=== PATIENT | female | born 1975 | race Caucasian/White ===

== ENCOUNTER → 2018-07-16 12:20 | Outpatient (CLI) | payer OTHER, SELFPAY ==
--- NOTE | 2018-07-16 12:24 | NM_ITS ---
History and Indications: Hypertension, coronary artery disease, bypass surgery, tobacco use, family history, chest pain, shortness of breath abnormal EKG, syncope and fatigue Procedure: Patient received a 0.4 mg of intravenous Lexiscan, resting heart rate was 96 bpm resting blood pressure 145/97, with Lexiscan maximum heart rate achieved was 105 bpm which is less than 85% of the maximum predicted heart rate and a blood pressure was 151/91. With Lexiscan patient complained of shortness of breath. Electrocardiogram: Resting electrocardiogram showed the ectopic atrial rhythm , nonspecific ST-T changes, with Lexiscan there is less than 1.[address] segment depression noted from the baseline EKG. Patient transiently converted sinus rhythm during this study. At that of the test patient has a ectopic atrial rythm. Cardiac stress and resting SPECT images: Cardiac stress and rest SPECT images were obtained using technetium 99 Myoview 30.6 mCi at stress and 10.0 mCi at rest. Gated SPECT further analysis of segmental wall motion and calculation of the ejection fraction also done. Cardiac stress and rest images show uniform myocardial activity without any segmental perfusion abnormality, computer derived ejection fraction is 61% with no obvious regional wall motion abnormality, right ventricle is normal size and contractility. Conclusion: 1. The EKG portion of the Lexiscan Myoview is nondiagnostic, patient has ectopic atrial rhythm baseline. 2. No obvious scintigraphic evidence of reversible ischemia seen, computer derived ejection fraction is 61% with no regional wall motion abnormality, right ventricle is normal size and contractility.
--- NOTE | 2018-07-16 12:56 | HMH.ITSHM ---
GABAPENTIN METOPROLOL CATAPRES MAXZIDE IBUPROFEN TRAMADOL
== END ==
PROVIDERS: Family Provider Internal Medicine Adolescent Medicine; PCP Nurse Practitioner Family; Visit Provider Internal Medicine
DX: R07.9 Chest pain, unspecified (principal); R06.02 Shortness of breath; I10 Essential (primary) hypertension
CPT/HCPCS: 78452; 93017; A9502; J2785

== ENCOUNTER → 2018-07-19 08:01 | Outpatient (CLI) | payer OTHER, SELFPAY ==
--- NOTE | 2018-07-19 08:02 | AS_ITS ---
Renal Arterial Duplex IMPRESSIONS 1. Elevated bilateral renal artery velocities suggesting renal artery stenosis. Consider CTA for confirmation 2. Bilateral kidney size, on the upper limits of normal. Complete renal arterial duplex. Duplex scan and Doppler flow study including spectral analysis, color and spears scale imaging. Height: Height: 175.3cm. Height: 69in. Weight: Weight: 87.1kg. Weight: 191.6lb. Body mass index: BMI: 28.4kg/m^2. Body surface area: BSA: 2.08m^2. Location: Vascular laboratory. Patient status: Outpatient. Tables: Arterial flow: + +-------+--------+ Location V sys V ed + +-------+--------+ Right renal - proximal 190cm/s 62.3cm/s + +-------+--------+ Right renal - mid 211cm/s 77cm/s + +-------+--------+ Right renal - distal 136cm/s 54.3cm/s + +-------+--------+ Left renal - proximal 181cm/s 62.7cm/s + +-------+--------+ Left renal - mid 173cm/s 68.2cm/s + +-------+--------+ Left renal - distal 261cm/s 96.9cm/s + +-------+--------+ Right renal - Origin 185cm/s 71cm/s + +-------+--------+ Left renal - Origin 177cm/s 61cm/s + +-------+--------+ Aorta 112cm/s 25cm/s + +-------+--------+ Artery mapping: + +--------+-------+ Location Diameter Patency + +--------+-------+ Abdominal aorta - mid 1.6mm Patent + +--------+-------+ Renal anatomy: + +------+------+ Left Right + +------+------+ Long axis 13.2cm 13.8cm + +------+------+ Short axis 5cm 5.6cm + +------+------+ Velocity ratios: + +-----+ V sys + +-----+ Right renal/aortic 2.1 + +-----+ Left renal/aortic 2.3 + +-----+ (Report amended ) Electronically signed by: Pankaj Schulz [id number]
--- NOTE | 2018-07-19 08:02 | CA_ITS ---
PROCEDURE: 2-D M-mode and color Doppler study INDICATIONS FOR THE TEST: Chest pain+ COPD Heart Murmur+ Tobacco Smoking+ Palpitations+ Fatigue+ Syncope+ Edema+ Hypertension+Diabetes Mellitus Rheumatic Fever SOB HERNANDEZ Obesity Hyperlipidemia Family History HD+ Additional History hx of open heart to correct a PFO at age 14, colon cancer, pre-op clearance for hysterectomy PATIENT INFORMATION HEIGHT: 69 WEIGHT: 196 GENDER: Female B/P: 174/89 2-D/M-MODE INTERPRETATION: 2-D MEASUREMENTS OBSERVED VALUES IN CMS Right Ventricular Dimension (RVDd) 2.4 Interventricular Septum (Thickness)(IVsd) 1.0 Left Ventricular Internal Dimensions(LVIDd) 4.8 Left Ventricular Posterior Wall (Thickness)(LVPWd) 1.0 Aortic Root 3.1 Aortic Cusp Separation 2.4 Left Atrial Dimensions (LAD) 3.5 2D 1. Left atrium is qualitatively mildly enlarged, left ventricle is normal size, mild concentric left ventricular hypertrophy, visually estimated ejection fraction 55% with no obvious regional wall motion abnormality. 2. The right atrium and right ventricle are relatively normal size and function. 3. The intra-atrial septum is echogenic, historically patient is status post ASD repair. 4. The mitral and tricuspid valve leaflets are minimally thickened. 5. The pulmonic valve is poorly visualized. 6. No significant pericardial effusion noted. DOPPLER INTERROGATION: Doppler interrogation of the aortic, mitral and tricuspid valvular presence of mild mitral and tricuspid regurgitation, tricuspid regurgitation jet velocity is insufficient for calculation of the right ventricular systolic pressure, diastolic parameters are inconclusive, there is no flow across the intra-atrial septum. CONCLUSION: 1. Mildly enlarged left atrium, normal left ventricular size, mild concentric left ventricular hypertrophy, visually estimated ejection fraction 55% with no obvious regional wall motion abnormality, diastolic parameters are inconclusive. 2. Mild mitral and tricuspid regurgitation 3. Status post ASD repair, there is no flow across the intra-atrial septum. 4. No significant pericardial effusion noted.
== END ==
PROVIDERS: Family Provider Internal Medicine Adolescent Medicine; PCP Nurse Practitioner Family; Visit Provider Internal Medicine
DX: R07.9 Chest pain, unspecified (principal); R42 Dizziness and giddiness; F17.200 Nicotine dependence, unspecified, uncomplicated; I10 Essential (primary) hypertension; R94.31 Abnormal electrocardiogram [ECG] [EKG]; Z01.818 Encounter for other preprocedural examination
CPT/HCPCS: 93306; 93976

== ENCOUNTER → 2019-07-25 07:54 | Outpatient (CLI) | payer OTHER, SELFPAY ==
[2019-07-25 08:11] LABS: Basophils # 0.1 K/mm3 (0-0.2); Basophils % 0.8 % (0.1-2.0); Eosinophils # 0.2 K/mm3 (0.0-0.4); Eosinophils % 2.7 % (0.1-12.0); Hematocrit 44.8 % (37.0-47.0); Hemoglobin 14.8 g/dL (12.2-16.2); Lymphocytes # 2.7 K/mm3 (0.7-4.5); Lymphocytes % 30.9 % (10-50); Mean Corpuscular HGB Conc 32.9 g/dL (31.8-35.4); Mean Platelet Volume 7.1 fl (7.4-10.4); Monocytes # 0.4 K/mm3 (0.1-1.0); Monocytes % 4.8 % (1.7-9.3); Neutrophils # 5.3 K/mm3 (1.8-7.8); Neutrophils % 60.9 % (37.0-80.0); Platelet Count 271 K/mm3 (142-424); Red Blood Count 5.09 M/mm3 (4.20-5.40); Red Cell Distribution Width 13.9 % (11.5-17.5); White Blood Count 8.7 K/mm3 (4.8-10.8)
[2019-07-25 10:02] LABS: Alanine Aminotransferase 27 U/L (12-78); Albumin Level 3.5 gm/dL (3.4-5.0); Alkaline Phosphatase 64 U/L (46-116); Anion Gap 15.2 mEq/L (5-15); Aspartate Amino Transferase 15 U/L (15-37); Bilirubin,Direct 0.1 mg/dL (0.0-0.2); Bilirubin,Indirect 0.3 mg/dL (0.0-0.9); Bilirubin,Total 0.4 mg/dL (0.2-1.0); Blood Urea Nitrogen 14 mg/dL (7-18); Calcium 10.6 mg/dL (8.5-10.1); Carbon Dioxide 25 mmol/L (21.0-32.0); Chloride 102 mmol/L (98-107); Chol/HDL Ratio 4.6 (1-3.5); Cholesterol 206 mg/dL (140-200); Creatinine,Serum 0.79 mg/dL (0.55-1.02); Estimated Glomerular Filt Rate 80 ml/min (>60); Free T4 (Free Thyroxine) 1.02 ng/dl (0.76-1.46); GFR (African American) 97 ML/MIN (>60); Glucose 91 mg/dL (74-106); HDL Cholesterol 45 mg/dL (29-89); LDL Cholesterol 109 mg/dL (0-130); Potassium 4.2 mmoL/L (3.5-5.1); Sodium 138 mmol/L (136-145); Thyroid Stimulating Hormone 0.72 uIU/ml (0.358-3.740); Total Protein,Serum 7.7 gm/dL (6.4-8.2); Triglycerides 261 mg/dL (30-200); VLDL Cholesterol 52 mg/dL (0-40)
== END ==
PROVIDERS: Visit Provider Urology
DX: R00.2 Palpitations (principal); R06.09 Other forms of dyspnea; R07.9 Chest pain, unspecified; R94.31 Abnormal electrocardiogram [ECG] [EKG]; I10 Essential (primary) hypertension; R53.83 Other fatigue; R60.0 Localized edema; Z85.038 Personal history of other malignant neoplasm of large intestine; Z87.74 Personal history of (corrected) congenital malformations of heart and circulatory system
CPT/HCPCS: 36415; 80048; 80061; 80076; 84439; 84443; 85025

== ENCOUNTER → 2019-08-02 09:02 | Outpatient (CLI) | payer OTHER, SELFPAY ==
--- NOTE | 2019-08-02 09:03 | CA_ITS ---
APPROVED REPORT EXAM: Comprehensive 2D, Doppler, and color-flow Echocardiogram Director Game: Piedad Myers RDCS Ht: 5 ft 9 in Wt: 192lbs BSA: 2.03 BP: 165/98 mmHg Indications: CP SMOKER PALPS HTN HERNANDEZ 2D Dimensions LVOT 1.80 cm (M/F) 1.5-2.5 M-Mode Dimensions RVDd 2.20 cm (0.9-2.6) LA Diam 3.00 cm (1.9-4.0) LVDd 5.30 cm (3.5-5.7) Ao Diam 3.70 cm (2.0-3.7) LVDs 3.40 cm (3.5-5.7) AV Cusp 2.00 cm (1.5-2.6) IVSd 1.20 cm (0.6-1.1) PWd 1.20 cm (0.6-1.1) EF (Teich) 64.90% FS 35.80% EDV (Teich) 135.00 mL ESV (Teich) 47.40 mL LV Diastology E/A Ratio 0.9 MED E' 8.19 (< 7 cm/sec) E'/MED E' Ratio 7.70 (>14) LAT E' 10.00 (<10 cm/sec) E/LAT E' Ratio 6.30 (>14) Mitral Valve MV E Max Harvey. 62.70 (40-130 cm/s) MV A Velocity 70.10 (40-130 cm/s) E/A Ratio 0.90 Left Ventricle Left atrium is mildly enlarged, left ventricle is normal size, mild concentric left ventricular hypertrophy, visually estimated ejection fraction 55% with no regional wall motion abnormality, diastolic parameters are within normal range. Right Ventricle Right atrium and right ventricular normal size and contractility. Aortic Valve Aortic valve is minimally thickened and fibrosed. There is no aortic stenosis aortic insufficiency. Mitral Valve Mitral valve is grossly normal, there is mild mitral regurgitation. Tricuspid Valve Tricuspid valve is grossly normal, there is mild tricuspid regurgitation. Pulmonic Valve Pulmonic valve is poorly visualized. Great Vessels Aortic root is normal size. Pericardium No significant pericardial effusion noted. Conclusion 1. Mildly in the left atrium, normal left ventricular size, mild concentric left ventricular hypertrophy, visually estimated ejection fraction of 55% with no regional wall motion abnormality. Diastolic parameters are within normal range. 2. Mild mitral and tricuspid regurgitation 3. No significant pericardial effusion noted. Electronically signed by : Rafael Thakur, 08/04/2019 08:00:55
--- NOTE | 2019-08-02 09:03 | CA_ITS ---
APPROVED REPORT Exam: Exercise Treadmill Technologist: Fox Matthews, Ht: 5 ft 9 in Wt: 194 lbs BSA: 2.04 m2 HR: 78 bpm BP: 150/90 mmHg Rhythm: SINUS RHYTHM Medical History Medical History: CHEST PAIN HTN Medications: Gabapentin,,,,, Blood pressure,,,,, HORMONE,,,,, Allergies: PCN Cardiac Risk Factors: HTN, Hyperlipidemia Stress Test Details Test: Manual Treadmill HR Resting HR: 78 bpm Max Heart Rate (APMHR): 178 bpm Max HR Achieved: 137 bpm Target HR (85% APMHR): 151 bpm % of APMHR: 76 Recovery HR: 133 bpm BP Resting BP: 150/90 mmHg Max BP: 178/90 mmHg Recovery BP: 172.0/98.0 mmHg ECG Resting ECG: SINUS RHYTHM Clinical Exercise duration: 07:10 min Highest Stage Achieved: Exercise capacity: 8.8 METs Stress ECG Conclusion JIMMY PROTOCOL COMPLETED. EXERCISED 07:10 MINUTES. METS = 8.8. MAX HEART RATE 137 BPM. MAX BP 178/90. STOPPED DUE TO SHORTNESS OF BREATH. MAX HEART RATE 137 BPM WHICH IS 77% OF PM FOR AGE. KILO BP 178/90. METS = 8.8. TEST STOPPED DUE TO SHORTNESS OF BREATH. NO CHEST PAIN. + SHORTNESS OF BREATH AT PEAK EXERCISE. RESOLVING IN RECOVERY, NO ECTOPY. LESS THAN 1.5MM ST DEPRESSION. AVERAGE EXERICES CAPACITY. HYPERTENSIVE RESPONSE. NO ECTOPY. LESS THAN 1.5MM ST DPRESSION AT MAX HEART RATE OF 137 BPM AT 77%. Nondiagnostic treadmill stress test as patient did not achieve the target heart rate Test Summary REST . . . . . . . Standing REST . . . . . . . Sitting REST 04:50 0.0 0.0 78 . 150/ 90 . . Stage 1 01:00 10.0 1.7 92 . . . . Stage 1 02:00 10.0 1.7 99 . . . . Stage 1 03:00 10.0 1.7 107 . . . . Stage 2 01:00 12.0 2.5 114 . 162/100 . . Stage 2 02:00 12.0 2.5 120 . 162/100 . . Stage 2 03:00 12.0 2.5 126 . 162/100 . . Stage 3 . . . . . . . Stage held Stage 3 . . . . . . . Stage resumed Stage 3 . . . . . . . Protocol changed to Manual Treadmill Stage 3 01:00 15.5 2.9 136 . . . . Stage 3 01:10 15.5 2.9 137 . . . Stop exercise at 07:10 RECOVERY 01:00 0.0 0.0 121 . . . . RECOVERY 02:00 0.0 0.0 105 . . . . RECOVERY 03:00 0.0 0.0 103 . 172/ 98 . . RECOVERY 04:00 0.0 0.0 99 . 178/ 90 . . RECOVERY 04:08 0.0 0.0 98 . 178/ 90 . . Electronically signed by : Rafael Thakur, 08/02/2019 13:56:21
== END ==
PROVIDERS: PCP Nurse Practitioner Family; Visit Provider Urology
DX: R07.9 Chest pain, unspecified (principal); R00.2 Palpitations; R94.31 Abnormal electrocardiogram [ECG] [EKG]; R06.09 Other forms of dyspnea; I10 Essential (primary) hypertension; R53.83 Other fatigue; R60.0 Localized edema; Z85.038 Personal history of other malignant neoplasm of large intestine; Z87.74 Personal history of (corrected) congenital malformations of heart and circulatory system
CPT/HCPCS: 93017; 93306

== ENCOUNTER → 2019-09-05 10:22 | Outpatient (CLI) | payer OTHER, SELFPAY ==
--- NOTE | 2019-09-05 10:44 | XR_ITS ---
PROCEDURE: XR CERVICAL SPINE 3V CLINICAL INDICATION: CERVICAlGIA COMPARISON: No exams were available for comparison FINDINGS: Normal alignment. No fracture or dislocation. Mild degenerative disc disease C5-C6. C7 is not well delineated. There is a faint outline of C7 which is normal and alignment. IMPRESSION: Mild degenerative disc disease C5-C6 Dictated by: Pankaj Schulz MD 09/05/2019 11:09 Electronically signed by Pankaj Schulz MD in [place] 09/05/2019 11:09
== END ==
PROVIDERS: PCP Nurse Practitioner Family; Visit Provider Nurse Practitioner
DX: M54.2 Cervicalgia (principal)
CPT/HCPCS: 72040

== ENCOUNTER → 2021-03-22 09:56 | Outpatient (CLI) | payer OTHER, SELFPAY ==
--- NOTE | 2021-03-22 10:02 | CA_ITS ---
APPROVED REPORT EXAM: Comprehensive 2D, Doppler, and color-flow Echocardiogram Windshield Installer: MANJU Duncan, RVS Ht: 5 ft 9 in Wt: 212lbs BSA: 2.12 BP: 134/78 mmHg Indications: congenital hx-ASD with closure age 14, SOA, exsmoker 2D Dimensions Left Atrium 4.10 cm LA Volume 77.50 mL LVOT 1.90 cm (M/F) 1.5-2.5 LA Volume Index 36.60 mL/m2 (M/F) 16-34 M-Mode Dimensions RVDd 3.40 cm (0.9-2.6) LA Diam 3.96 cm (1.9-4.0) LVDd 4.69 cm (3.5-5.7) Ao Diam 3.03 cm (2.0-3.7) LVDs 3.03 cm (3.5-5.7) IVSd 0.89 cm (0.6-1.1) PWd 0.86 cm (0.6-1.1) EF (Teich) 65.80% EPSs 0.32 cm FS 36.20% EDV (Teich) 104.90 mL TAPSE 1.45 (<1.7) ESV (Teich) 35.90 mL LV Diastology E Decel Time 263.00 (160-240 msec) E/A Ratio 2.69 MED E' 8.80 (< 7 cm/sec) MED A' 7.40 cm/s E'/MED E' Ratio 12.11 (>14) LAT E' 9.40 (<10 cm/sec) LAT A' 7.20 cm/s E/LAT E' Ratio 11.34 (>14) Aortic Valve LVOT Max 123.00 (70-110 cm/s) LVOT VTI 25.81 cm AoV Peak Harvey. 137.00 (50-130 cm/s) AO Peak GR. 7.50 mmHg AO Mean GR. 4.10 (<5 mmHg) AO VTI 29.96 (18-25 cm) LYNSEY (VTI) 2.44 (2.5-4.5 cm2) Mitral Valve MV A Velocity 40.00 (40-130 cm/s) E/A Ratio 2.69 MV Decel. Time 263.00 (160-240 ms) Pulmonary Valve PV Peak Velocity 62.00 (50-150 cm/s) Tricuspid Valve TR P. Velocity 250.00 cm/s RAP Estimate 10.00 mmHg RVSP 34.90 mmHg Left Ventricle Left atrium normal size, left ventricle is normal size, there is no concentric left ventricular hypertrophy, visually estimated ejection fraction 55% with no regional wall motion abnormality, diastolic parameters are inconclusive. Right Ventricle Right atrium and right ventricle are normal size and contractility. Atria Intra-atrial septum is intact, there is no flow across the atrial septum. Mitral Valve Mitral valve grossly normal, there is trace mitral regurgitation. Tricuspid Valve Tricuspid grossly normal, there is trace tricuspid regurgitation, tricuspid regurgitation jet velocity is inadequate for calculation of the right ventricular systolic pressure. Pulmonic Valve Pulmonic valve is poorly visualized. Great Vessels Aortic root is normal size. Pericardium No significant pericardial effusion noted. Conclusion 1. Normal left ventricular size, preserved left ventricular systolic function, visually estimated ejection fraction 55% with no regional wall motion abnormality, diastolic parameters are inconclusive. 2. Intra-atrial septum is intact, there is no flow across the interatrial septum. 3. Trace mitral and tricuspid regurgitation. 4. No significant pericardial effusion noted. Electronically signed by : Rafael Thakur, 03/22/2021 13:41:44
== END ==
PROVIDERS: PCP Nurse Practitioner; Visit Provider Nurse Practitioner Family
DX: R07.9 Chest pain, unspecified (principal); R94.31 Abnormal electrocardiogram [ECG] [EKG]; I10 Essential (primary) hypertension; E78.5 Hyperlipidemia, unspecified
CPT/HCPCS: 93306

== ENCOUNTER → 2021-06-29 14:17 | Outpatient (CLI) | payer OTHER, SELFPAY ==
--- NOTE | 2021-06-29 14:22 | XR_ITS ---
PROCEDURE: XR CHEST 2V CLINICAL HISTORY: SOB Shortness of breath and cough COMPARISON: CR XR CHEST 2V from 07/31/2019 FINDINGS: Prior median sternotomy. The heart size is normal. The lungs are clear without infiltrates, suspicious nodules, or pleural effusions. No acute bony abnormalities. IMPRESSION: No acute findings. Dictated by: Pankaj Schulz MD 06/29/2021 15:15 Pankaj Schulz MD in [place] 06/29/2021 15:15
== END ==
PROVIDERS: PCP Nurse Practitioner; Visit Provider Nurse Practitioner
DX: R06.02 Shortness of breath (principal)
CPT/HCPCS: 71046

== ENCOUNTER → 2021-09-02 12:19 | Outpatient (CLI) | payer OTHER, SELFPAY ==
--- NOTE | 2021-09-02 12:20 | NM_ITS ---
APPROVED REPORT Exam: Nuclear Stress Test Indication: Chest pain, SOB, HTN, High cholesterol, Tobacco use, Family history, CABG Patient Location: Outpatient Stress Tech: Ratna Arora [place] Tech:GELA Gomez RT(R)(N) Ht: 5 ft 9 in Wt: 213 lbs Bra Size: 38A HR: 82 bpm BP: 134/99 mmHg BSA: 2.12 m2 BMI: 31.4 History: Chest pain, SOB, HTN, High cholesterol, Tobacco use, Family history, CABG Procedure: Patient received a 0.4 mg of intravenous Lexiscan, resting heart rate 82 bpm, resting blood pressure 134/99 mmHg, with Lexiscan maximum heart rate achived was 110 bpm which is Less than 85 % of the maximum predicted heart rate and blood pressure was 188/123 mmHg. With Lexiscan, patient denied any complaint of chest pain. Electrocardiogram Resting electrocardiogram shows sinus rhythm, with Lexiscan there is less than 1.[address] segment depression noted from the baseline EKG. The EKG portion of the Lexiscan is nondiagnostic. Cardiac Stress and Resting SPECT Images: Cardiac Stress and Resting SPECT images were obtained using technetium 99m Myoview 31.4 mCi stress and 9.94 mCi at rest. Gated SPECT for analysis of segmental wall motion and calculation of the ejection fraction also done. Prone images were also obtained. Cardiac stress and resting SPECT images show uniform myocardial activity without segmental perfusion abnormality, computer derived ejection fraction is over 65% with no regional wall motion abnormality, right ventricle is normal size and contractility. Conclusion: 1. The EKG portion of the Lexiscan is nondiagnostic. 2. No scintigraphic evidence of reversible ischemia seen, computer derived ejection fraction is over 65% with no regional wall motion abnormality, right ventricle is normal size and contractility. 3. Normal Lexiscan Myoview study. Electronically signed by : Rafael Thakur MD 09/03/2021 11:32:06
--- NOTE | 2021-09-02 15:27 | HMH.ITSHM ---
Current Home Medications as stated by this patient Maura Woodson or contracts representative. []TRIAMTERENE IBUPROFEN GABAPENTIN FUROSEMIDE ESTRADIOL CETIRIZINE CARVEDILOL ATORVASTATIN VITAMIN C ADALIMUMAB
--- NOTE | 2021-09-02 15:50 | CA_ITS ---
APPROVED REPORT Exam: Pharmacologic Technologist: JOSEPH GALVAN, Ht: 5 ft 9 in Wt: 221 lbs BSA: 2.16 m2 HR: 83 bpm BP: 134/99 mmHg Indications: SOA Medical History Medications: Gabapentin,,,,, Atorvastatin,,,,, Coreg,,,,, Cetrizine,,,,, Ibuprofen,,,,, Vit C,,,,, Maxzide,,,,, Estradilol,,,,, HumIra,,,,, Furosemide,,,,, Stress Test Details Test: LEXISCAN HR Resting HR: 82 bpm Max Heart Rate (APMHR): 176.695292 bpm Max HR Achieved: 110 bpm Target HR (85% APMHR): 149.765914 bpm % of APMHR: 62.50 Recovery HR: 87 bpm BP Resting BP: 134/99 mmHg Max BP: 188/123 mmHg Recovery BP: 173.0/101.0 mmHg ECG Resting ECG: NSR, ST abns inferiorly and laterally Clinical Exercise duration: 04:01 min Highest Stage Achieved: Stress ECG Conclusion 1 Minute: SOA 2 Minute: SOA, lightheaded 3 Minute: SOA, lightheaded, nausea 4 Minute: SOA, lightheaded, nausea, vomiting Recovery 1 minute: Aminophylline 100mg slow IV Recovery 2 minute: sxs better Recovery 3 minute: sxs almost gone-still some nausea Recovery 9 minutes: 163/105 HR 84 Recovery 15 minutes: 178/100 HR 86 Recovery 30 minutes: 140/98 Symptoms: SOA, N/V, lightheaded, No CP. Arrhythmias/Ectopy: None. ST-T Changes: Exaggeration of baseline ST abns then after [address] segments normalized inferiorly with some mild J point elevation in lateral leads. Later in recovery the ST depression returned in both the inferior and lat. leads. Conclusion: Non-diagnostic Lexiscan stress. Myoview images reported separately. Test Summary RECOVERY 12:00 . . 89 . 163/105 . . Stage 1 01:00 . . 100 . . . . Stage 2 01:00 . . 98 . . . . Stage 3 01:00 . . 84 . . . . Stage 4 01:00 . . 87 . 188/123 . . Stage 4 01:01 . . 86 . 188/123 . Stop exercise at 04:01 RECOVERY 01:00 . . 102 . . . . RECOVERY 02:00 . . 94 . . . . RECOVERY 03:00 . . 92 . . . . RECOVERY 04:00 . . 89 . . . . RECOVERY 05:00 . . 88 . . . . RECOVERY 06:00 . . 87 . 165/102 . . RECOVERY 07:00 . . 87 . 165/102 . . RECOVERY 08:00 . . 89 . 165/102 . . RECOVERY 09:00 . . 84 . 165/102 . . RECOVERY 10:00 . . 86 . 163/105 . . RECOVERY 11:00 . . 86 . 163/105 . . RECOVERY 12:00 . . 89 . 163/105 . . RECOVERY 13:00 . . 86 . 163/105 . . RECOVERY 14:00 . . 86 . 163/105 . . RECOVERY 15:00 . . 82 . 163/105 . . RECOVERY 16:00 . . 87 . 178/100 . . RECOVERY 16:12 . . 86 . 178/100 . . Electronically signed by : Rafael Thakur MD 09/03/2021 11:28:24
== END ==
PROVIDERS: PCP Nurse Practitioner; Visit Provider Physician Assistant
DX: R07.9 Chest pain, unspecified (principal); R94.31 Abnormal electrocardiogram [ECG] [EKG]; E78.5 Hyperlipidemia, unspecified; I10 Essential (primary) hypertension
CPT/HCPCS: 78452; 93017; A9502; J2785

== ENCOUNTER → 2021-10-19 13:32 | Outpatient (CLI) | payer OTHER, SELFPAY ==
--- NOTE | 2021-10-19 13:33 | CT_ITS ---
PROCEDURE: CT CHEST WO CON CLINICAL INDICATION: dyspnea COMPARISON: No exams were available for comparison TECHNIQUE: Axial images obtained with sagittal and coronal reformats. All CT scans at the facility use one or more dose reduction, viz: automated exposure control, ma/kV adjustment per patient size (including targeted exams where dose is matched to indication, i.e. head), or iterative reconstruction technique. FINDINGS: HEART AND MEDIASTINAL STRUCTURES: Sub cm hypodensity left lobe of the thyroid gland inferiorly nonspecific. In the upper pole of the right thyroid gland there is a 2 by 1 cm hypodense lesion. Ultrasound suggested evaluation. Prior median sternotomy. Normal heart size. Coronary artery calcifications. Calcification noted along the superior aspect of the right atrium. LUNGS AND PLEURAL SPACES: COPD changes. 2 mm noncalcified nodule right upper lobe image 40 series 3, 4 mm noncalcified nodule right lower lobe image 50 series 3, scattered calcified granulomas. There is mild bronchial thickening. No suspicious pulmonary nodule identified. Linear opacity left lower lobe posteriorly suggesting a small area of scarring. No infiltrates apparent. No bronchiectasis. BONY STRUCTURES: No acute bony abnormalities apparent. UPPER ABDOMEN: Heterogeneous fatty liver. ADDITIONAL FINDINGS: No other significant abnormalities. IMPRESSION: 1. No acute finding. 2. COPD changes with mild bronchial thickening. Scattered small nodules some of which are calcified. The largest noncalcified nodule is 4 mm. Suggest 12 month follow-up. 3. Indeterminate 2 x 1 cm right thyroid nodule and sub cm left thyroid nodule. Consider ultrasound for further evaluation. Dictated by: Pankaj Schulz MD 10/20/2021 08:42 Pankaj Schulz MD in [place] 10/20/2021 08:42
== END ==
PROVIDERS: PCP Nurse Practitioner; Visit Provider Physician Assistant
DX: R07.9 Chest pain, unspecified (principal); R06.00 Dyspnea, unspecified; I10 Essential (primary) hypertension; Z85.038 Personal history of other malignant neoplasm of large intestine; Z87.74 Personal history of (corrected) congenital malformations of heart and circulatory system
CPT/HCPCS: 71250

== ENCOUNTER → 2022-03-03 15:41 | Outpatient (CLI) | payer OTHER, SELFPAY ==
--- NOTE | 2022-03-03 15:45 | MM_ITS ---
PROCEDURE INFORMATION: Exam: MG Bilateral Screening 3D Mammography Exam date and time: 03/03/2022 3:40 PM Age: 46 years old Clinical indication: Screening examination TECHNIQUE: Imaging protocol: Bilateral Screening tomosynthesis and 2D mammography including computer-aided detection (CAD) when performed. COMPARISON: No relevant prior studies available. FINDINGS: MAMMOGRAPHY: Breast composition: The breast tissue is composed of scattered areas of fibroglandular density. Mass: 0.5cm mass in the middle third of the left medial breast Architectural distortion: None. Calcifications: No suspicious calcifications. Asymmetric density: None. Skin thickening: None. Axillary adenopathy: None. IMPRESSION: Patient to be recalled for spot compression views of the left breast in the CC and MLO projections, a full 90 degree lateral view, and left breast ultrasound for further evaluation of a left breast mass. ASSESSMENT: BI-RADS Category 0: Incomplete- Need Additional Imaging Evaluation and/or Prior Mammograms for Comparison
== END ==
PROVIDERS: PCP Nurse Practitioner; Visit Provider Nurse Practitioner
DX: Z12.31 Encounter for screening mammogram for malignant neoplasm of breast (principal)
CPT/HCPCS: 77063; 77067

== ENCOUNTER → 2022-03-17 14:02 | Outpatient (CLI) | payer OTHER, SELFPAY ==
--- NOTE | 2022-03-17 14:05 | MM_ITS ---
PROCEDURE INFORMATION: Exam: US Left Breast, Complete MG Left Diagnostic Breast Tomosynthesis Exam date and time: 03/17/2022 2:07 PM Age: 46 years old Clinical indication: Callback for additional assessment of 5 mm left medial middle 1/3 mass identified on 03/03/2022 screening mammogram TECHNIQUE: Imaging protocol: Complete ultrasound of all four quadrants of the Left breast and the retroareolar regions, including ultrasound of the axilla when performed. Left Diagnostic tomosynthesis and 2D mammography including computer-aided detection (CAD) when performed. Unilateral or bilateral exam. COMPARISON: MG MM DIG SCREENING MAMM BI W/CAD 03/03/2022 3:40 PM FINDINGS: MAMMOGRAPHY: Spot compression views demonstrate a circumscribed intermediate density 5 mm mass in the upper slightly inner left middle 1/3 approximately 3 cm from the nipple. No associated architectural distortion or suspicious calcifications are present. Additionally, in the the slightly outer periareolar left breast there is a circumscribed very superficial, possibly cutaneous, 7 mm mass. No associated architectural distortion or suspicious calcifications are present. ULTRASOUND: In the region of mammographic interest, there is a near anechoic horizontal lobulated circumscribed 5 by 2 x 4 mm mass, approximating 10 o'clock 2 cm from the nipple. This has features suggestive of a complicated cyst. No associated shadowing or architectural distortion. In the left periareolar breast, there is a 6 x 5 by 6 mm circumscribed hypoechoic mass with posterior acoustic enhancement. This extremely superficial with evidence of a claw sign indicating that it is probably within the skin. As such, this could reflect a sebaceous cyst. Differential considerations include papillary neoplasm or other ductal pathology. Associated prominent ducts measure up to about 3 mm. IMPRESSION: Recommend surgical consultation regarding excision of a 6 mm left periareolar possible sebaceous cyst versus neoplasm . Ultrasound-guided sampling procedure is not recommended sense pronounced inflammatory response can occur if sebaceous cyst is sampled percutaneously Six-month follow-up targeted ultrasound is recommended to assess stability of a suspected left 10 o'clock 5 mm complicated cyst ASSESSMENT: BI-RADS category 4: Suspicious
== END ==
PROVIDERS: PCP Nurse Practitioner; Visit Provider Nurse Practitioner
DX: N63.25 Unspecified lump in the left breast, overlapping quadrants (principal)
CPT/HCPCS: 76641; 77061; 77065; G0279

== ENCOUNTER 2022-06-14 12:48 | Emergency (ER) | payer OTHER, SELFPAY ==
[2022-06-14] VITALS (9 sets, daily range): BP systolic 112–176; BP diastolic 79–102; PULSE 62–95; RESP 16–18; TEMP 36.8; O2SAT 87–93; BMI 30.8
--- NOTE | 2022-06-14 12:51 | PC.NURSE ---
Pt ambulatory to restroom from waiting area with cashier or checker stock clerk without complications to provide UA
--- NOTE | 2022-06-14 13:06 | PC.NURSE ---
GLADYS HANKS at for patient eval; family at with patient
[2022-06-14 13:10] LABS: Microscopic, Urine URINE MICROSCOPIC (MICROSCOPIC)
[2022-06-14 13:10] LABS: Influenza A, PCR Not Detected (NotDetected); Influenza B, PCR Not Detected (NotDetected)
--- NOTE | 2022-06-14 13:11 | XR_ITS ---
FINAL REPORT CLINICAL HISTORY: hypoxia, cough FINDINGS: A single PA view of the chest was obtained. There is no prior exam for comparison. The cardiac silhouette is within normal limits. The patient is status post median sternotomy. The lungs are clear. There is no effusion or pneumothorax. No acute osseous abnormality is identified. IMPRESSION: No radiographic evidence of acute cardiac or pulmonary disease on this single view of the chest. Reviewed, Interpreted and Dictated by Melia Gamboa MD Transcribed by Niharika Butler Authenticated and [facility]
--- NOTE | 2022-06-14 13:12 | HMH.EDABDPAI ---
ED Disposition Clinical Impression: COVID-19 Disposition: Home, Self-Care Condition on Discharge: Good Instructions: DI for COVID-19 (Suspected or Confirmed ) Additional Instructions: return to the ER for worse or any concerns Prescriptions: Nirmatrelvir/Ritonavir [Paxlovid 2X150 mg-100 mg (Eua)] 1 each PO BID 5 Days #10 tab Transmission Status: Received by [facility] Promethazine HCl [Phenergan 25mg tab] 25 mg PO Q6H PRN #12 tab PRN Reason: Nausea And Vomiting Transmission Status: Received by [facility] Referrals: Myah Esquivel APRN [Primary Care Provider] - - Critical Care Critical Care Time: No Attestation: On 06/14/22, the high probability of a clinically significant, sudden or life threatening deterioration of the following system(s) required my full and direct attention, intervention and personal management. The time I documented below is in addition to time spent performing reported procedures but includes the following listed in this critical care notation. Medical Decision Making - Medical Records Medical records reviewed: Yes: I reviewed the patient's medical records. - Darrel Inquiry Pt receiving controlled substance: No Vital Signs: 06/14/22 12:49 06/14/22 13:00 06/14/22 13:30 Temperature 98.3 F Temperature Source Oral Pulse Rate 95 H 80 Pulse Rate [Left Radial] 94 H Respiratory Rate 18 Blood Pressure 172/98 H 176/98 H Blood Pressure [Right Arm] 147/102 H Blood Pressure Mean 117 124 Blood Pressure Mean [Right Arm] 117 Blood Pressure Source [Right Arm] Automatic Cuff Blood Pressure Position [Right Arm] Sitting 02 Sat by Pulse Oximetry 89 L 90 L 91 L Oxygen Delivery Method Nasal Cannula Room Air Oxygen Flow Rate (LPM) 3 06/14/22 14:13 06/14/22 15:07 06/14/22 15:30 Temperature Temperature Source Pulse Rate 70 62 66 Pulse Rate [Left Radial] Respiratory Rate Blood Pressure 112/79 128/90 Blood Pressure [Right Arm] Blood Pressure Mean 88 102 Blood Pressure Mean [Right Arm] Blood Pressure Source [Right Arm] Blood Pressure Position [Right Arm] 02 Sat by Pulse Oximetry 93 L 92 L 87 L Oxygen Delivery Method Room Air Oxygen Flow Rate (LPM) - Lab Data Lab Results 06/14/22 12:50: Urine Color Yellow, Urine Appearance Clear, Urine pH 7.0, Ur Specific [place] 1.010, Urine Protein Negative, Urine Glucose (UA) Negative, Urine Ketones Negative, Urine Blood Negative, Urine Nitrate Negative, Urine Bilirubin Negative, Urine Urobilinogen 1.0, Ur Leukocyte Esterase Negative, Urine RBC None, Urine WBC None, Ur Squamous Epith Cells None, Urine Bacteria None 06/14/22 13:04: SARS-CoV-2 (PCR) Detected A, Influenza A Untype (PCR) Not detected, Influenza Type B (PCR) Not detected 06/14/22 13:10: WBC 12.4 H, RBC 5.08, Hgb 16.9 H, Hct 47.2 H, MCV 93.0, MCH 33.2 H, MCHC 35.7 H, RDW 15.2, Plt Count 286, MPV 7.8, Neut % (Auto) 57.5, Lymph % (Auto) 34.0, [place] % (Auto) 5.7, Eos % (Auto) 1.4, Baso % (Auto) 1.4, Neut # (Auto) 7.1, Lymph # (Auto) 4.2, [place] # (Auto) 0.7, Eos # (Auto) 0.2, Baso # (Auto) 0.2 06/14/22 13:10: Sodium 138, Potassium 3.4 L, Chloride 106, Carbon Dioxide 25, Anion Gap 10.4, BUN 16, Creatinine 0.90, Estimated Creat Clear 118, Estimated GFR 68, Est GFR ( Amer) 82, Glucose 121 H, Calcium 11.7 H, Total Bilirubin 0.7, AST 65 H, ALT 69, Alkaline Phosphatase 73, Total Protein 8.2, Albumin 4.3, Globulin 3.9 H, Albumin/Globulin Ratio 1.1 06/14/22 13:10: Procalcitonin 0.079 06/14/22 13:10: D-Dimer 0.82 H 06/14/22 14:15: Lactate 1.0 Result diagrams: 06/14/22 13:10 06/14/22 13:10 Orders (Tests/Meds): ED MEDICATIONS Generic Name Dose Route Start Last Admin Trade Name Freq PRN Reason Stop Dose Admin Remdesivir 100 mg/ Sodium 100 mls @ 100 mls/hr 06/15/22 13:00 Chloride IV 06/23/22 13:59 Q24H FAWN Discontinued Medications Generic Name Dose Route Start Last Admin Trade Name Freq PRN Reason Sto
[2022-06-14 13:15] LABS: Appearance,Urine CLEAR (Clear); Bilirubin,Urine Negative (Negative); Blood, Urine Negative (Negative); Color,Urine YELLOW (Yellow); Glucose,Urine (UA) Negative (Negative); Ketones,Urine Negative (Negative); Leukocyte Esterase,Urine Negative (Negative); Nitrate,Urine Negative (Negative); Protein,Urine Negative (Negative)
[2022-06-14 13:20] LABS: Basophils # 0.2 K/mm3 (0-0.2); Basophils % 1.4 % (0.1-2.0); Eosinophils # 0.2 K/mm3 (0.0-0.4); Eosinophils % 1.4 % (0.1-12.0); Hematocrit 47.2 % (37.0-47.0); Hemoglobin 16.9 g/dL (12.2-16.2); Lymphocytes # 4.2 K/mm3 (0.7-4.5); Mean Corpuscular HGB Conc 35.7 g/dL (31.8-35.4); Mean Corpuscular Hemoglobin 33.2 pg (27.0-31.2); Mean Platelet Volume 7.8 fl (7.4-10.4); Monocytes # 0.7 K/mm3 (0.1-1.0); Monocytes % 5.7 % (1.7-9.3); Neutrophils # 7.1 K/mm3 (1.8-7.8); Neutrophils % 57.5 % (37.0-80.0); Platelet Count 286 K/mm3 (142-424); Red Blood Count 5.08 M/mm3 (4.20-5.40); Red Cell Distribution Width 15.2 % (11.5-17.5); White Blood Count 12.4 K/mm3 (4.8-10.8)
[2022-06-14 13:30] LABS: Alanine Aminotransferase 69 U/L (12-78); Albumin Level 4.3 g/dl (3.5-5.0); Albumin/Globulin Ratio 1.1 (1.1-1.8); Alkaline Phosphatase 73 U/L (38-126); Anion Gap 10.4 mEq/L (5-15); Aspartate Amino Transferase 65 U/L (14-36); Bilirubin,Total 0.7 mg/dl (0.2-1.3); Blood Urea Nitrogen 16 mg/dl (7-17); Calcium 11.7 mg/dl (8.4-10.2); Carbon Dioxide 25 mmol/L (22.0-30.0); Chloride 106 mmol/L (98-107); Creatinine Clearance Estimated 118 mL/min (50-200); Estimated Glomerular Filt Rate 68 ml/min (>60); GFR (African American) 82 ML/MIN (>60); Globulin 3.9 g/dL (1.3-3.2); Glucose 121 mg/dl (74-100); Potassium 3.4 mmoL/L (3.5-5.1); Sodium 138 mmol/L (136-145); Total Protein,Serum 8.2 g/dl (6.3-8.2)
[2022-06-14 13:35] LABS: Coronavirus 19, PCR Detected (NotDetected)
--- NOTE | 2022-06-14 13:41 | CT_ITS ---
FINAL REPORT TECHNIQUE: Axial imaging of the chest is obtained after the administration of contrast. 3-D MIP reformatted images were also obtained and reviewed per PE protocol. CLINICAL HISTORY: hypoxia, covid COMPARISON: October 19, 2021 FINDINGS: There is suboptimal opacification of the pulmonary arteries. There is no central pulmonary embolus. A peripheral embolus cannot be excluded. There is no aortic dissection or intimal flap. There is no mediastinal, hilar, or axillary lymphadenopathy. The lungs are clear. There is no pleural or pericardial effusion. Limited evaluation of the upper abdomen is without acute abnormality. There is no acute osseous abnormality. IMPRESSION: Limited exam for pulmonary embolism due to suboptimal opacification. No aortic dissection. No acute intrathoracic abnormality. Reviewed, Interpreted and Dictated by Melia Gamboa MD Transcribed by Myah Augustin Authenticated and [facility]
--- NOTE | 2022-06-14 13:55 | PC.NURSE ---
pt in radiology at this time for CTA
--- NOTE | 2022-06-14 13:58 | PC.NURSE ---
called lab to draw blood cultures and other labs needed per md order
--- NOTE | 2022-06-14 14:04 | PC.NURSE ---
lab at drawing blood
[2022-06-14 14:08] LABS: D-Dimer 0.82 ug/mL (0.0-0.5)
--- NOTE | 2022-06-14 14:14 | PC.NURSE ---
Lab at getting blood cultures
[2022-06-14 14:22] LABS: Procalcitonin 0.079 ng/mL (0.0-2.0)
--- NOTE | 2022-06-14 14:23 | ECG_ITS ---
APPROVED REPORT Exam: Resting ECG HR:71 bpm ECG Measurements Heart Rate 71 AXES NV 139 P 96 QRSd 88 QRS 7 QT 381 T 55 QTc 403 Conclusion SINUS RHYTHM NONSPECIFIC T-WAVE ABNORMALITY BORDERLINE ECG UNCONFIRMED REPORT Electronically signed by : Dwayne Dahl MD 06/14/2022 21:08:57
--- NOTE | 2022-06-14 15:00 | PC.NURSE ---
rounded on room, asked patient if she needed anything,patient stated nothing needed at this time.
--- NOTE | 2022-06-14 15:03 | PC.NURSE ---
ED MD AT BEDSIDE TO REEVALUATE PT
--- NOTE | 2022-06-14 15:30 | PC.NURSE ---
walked pt in hallway, oxygen stayed at 92 on room air, aware
--- NOTE | 2022-06-14 15:32 | PC.NURSE ---
talked with Dagoberto in pharmacy and states that pt can take home paxolovid for covid today after receiving remdiesivir administration. MD ojsé
--- NOTE | 2022-06-14 15:45 | PC.NURSE ---
PT ASSISTED UP TO BR, RETURNED TO ROOM, WARM BLANKET PROVIDED
--- NOTE | 2022-06-14 16:39 | PC.NURSE ---
discussed with about pt dc home with oxygen sat high of 91, MD stated that he was ok with pt going home with an oxygen sat of that due to her getting up and her oxygen increasing when she did. Instructed pt to monitor her oxygen at home and to return to the ER if it dropped and stayed below what it was now or any shortness of air. family and pt verbalized understanding
== END 2022-06-14 16:43 | disposition home or self-care (01) ==
PROVIDERS: Emergency Provider Emergency Medicine; PCP Nurse Practitioner
DX: U07.1 COVID-19 (principal); R10.9 Unspecified abdominal pain; R31.9 Hematuria, unspecified; R09.02 Hypoxemia; R11.2 Nausea with vomiting, unspecified; R19.7 Diarrhea, unspecified; I10 Essential (primary) hypertension; G43.909 Migraine, unspecified, not intractable, without status migrainosus; Z79.1 Long term (current) use of non-steroidal anti-inflammatories (NSAID); Z79.890 Hormone replacement therapy; Z79.899 Other long term (current) drug therapy; Z88.0 Allergy status to penicillin; Z87.442 Personal history of urinary calculi; Z85.038 Personal history of other malignant neoplasm of large intestine; Z82.49 Family history of ischemic heart disease and other diseases of the circulatory system; Z80.9 Family history of malignant neoplasm, unspecified; Z83.3 Family history of diabetes mellitus
CPT/HCPCS: 71045; 71275; 80053; 81001; 83605; 84145; 85025; 85378; 87040; 93005; 96374; 96375; 99285; C9803; Q9967; U0003; U0005

== ENCOUNTER → 2023-01-16 12:05 | Outpatient (CLI) | payer OTHER, SELFPAY ==
--- NOTE | 2023-01-16 12:10 | XR_ITS ---
FINAL REPORT CLINICAL HISTORY: RIGHT SIDE SCIATICA FINDINGS: AP and frog leg views of the right hip with an AP pelvis were obtained. There is no prior exam for comparison. There is no acute fracture or dislocation. Joint space is preserved. Soft tissues are within normal limits. IMPRESSION: No acute osseous abnormality of the right hip. If pain persists, MR is recommended. Reviewed, Interpreted and Dictated by Melia Gamboa MD Transcribed by Carlee Lopez Authenticated and [facility]
== END ==
PROVIDERS: PCP Nurse Practitioner; Visit Provider Nurse Practitioner
DX: M54.31 Sciatica, right side (principal)
CPT/HCPCS: 73502

== ENCOUNTER 2024-03-13 10:40 | Outpatient (CLI) | payer OTHER, SELFPAY | END 2024-03-13 23:59 | disposition home or self-care (01) | LOC: RAD 10:40 | PROVIDERS: PCP Nurse Practitioner; Visit Provider Nurse Practitioner | DX: Z12.31 Encounter for screening mammogram for malignant neoplasm of breast (principal) | CPT/HCPCS: 77063; 77067 ==

== ENCOUNTER 2024-06-11 07:08 | Outpatient (CLI) | payer OTHER, SELFPAY ==
--- NOTE | 2024-06-11 07:12 | CT_ITS ---
FINAL REPORT TECHNIQUE: Axial CT images of the chest were obtained without contrast. Low-dose protocol was utilized. This study was performed with techniques to keep radiation doses as low as reasonably achievable (ALARA). Individualized dose reduction techniques using automated exposure control or adjustment of mA and/or kV according to the patient's size were employed. CLINICAL HISTORY: SCREENING current smoker 1ppd x30 years COMPARISON: CTA 06/14/2022 FINDINGS: CT CHEST WITHOUT, LOW DOSE SCREENING CT Di Vol: 2.90 mGy DLP: 108.38 mGy*cm There is no axillary, mediastinal, or hilar adenopathy. The heart size is normal. There is no pleural or pericardial effusion. The lung windows show a 3 mm left lower lobe nodule on image 51 which is stable and most likely a granuloma. There is a 5 mm peripheral nodule in the right lower lobe on image 45 which is unchanged. Limited images of the upper abdomen demonstrate no acute findings. IMPRESSION: No suspicious pulmonary nodule. LR Category 2: 12 month follow-up low-dose chest CT is recommended. Reviewed, Interpreted and Dictated by Amelia Becker MD Transcribed by Dior Scott Authenticated and . [facility]
== END 2024-06-11 23:59 | disposition home or self-care (01) ==
LOC: RAD 07:09
PROVIDERS: PCP Nurse Practitioner; Visit Provider Nurse Practitioner
DX: F17.200 Nicotine dependence, unspecified, uncomplicated (principal)
CPT/HCPCS: 71271

== ENCOUNTER 2024-10-06 15:54 | Emergency (ER) | payer OTHER, SELFPAY ==
[2024-10-06 15:55] VITALS: BP 130/80; PULSE 74; RESP 20; TEMP 36.8; O2SAT 97; BMI 28.5
--- NOTE | 2024-10-06 16:59 | CT_ITS ---
PROCEDURE INFORMATION: Exam: CT Abdomen And Pelvis With Contrast Exam date and time: 10/06/2024 6:13 PM Age: 48 years old Clinical indication: Abdominal pain; Generalized TECHNIQUE: Imaging protocol: Computed tomography of the abdomen and pelvis with contrast. Radiation optimization: All CT scans at this facility use at least one of these dose optimization techniques: automated exposure control; mA and/or kV adjustment per patient size (includes targeted exams where dose is matched to clinical indication); or iterative reconstruction. Contrast material: ISOVUE; Contrast volume: 75 ml; Contrast route: IV; COMPARISON: CR XR HIP RT 2-3V W/PELVIS 01/16/2023 12:25 PM FINDINGS: Lungs: Lung bases are clear. Liver: Fatty liver changes with associated hepatomegaly measuring 21 cm. Subcentimeter low-density lesion in the lateral aspect of the right lobe of the liver on image 56 of series 4 and coronal image 40 too small to characterize but likely a cyst. Liver otherwise unremarkable. Gallbladder and biliary ducts: Normal. No calcified stones. No ductal dilation. Pancreas: Normal. No ductal dilation. Spleen: Normal. No splenomegaly. Adrenal glands: Normal. No mass. Kidneys and ureters: 5 mm nonobstructing stone mid right kidney. Multiple nonobstructing left kidney stones largest measuring 11 mm. Kidneys and ureters otherwise unremarkable with no obstructing stones or uropathy. Stomach and bowel: Multiple diverticula of the sigmoid. Colon otherwise unremarkable. Scattered mildly fluid distended but not significantly dilated small bowel loops noted. GI tract structures otherwise unremarkable with no evident wall thickening allowing for incomplete distention. Appendix: Appendix is normal. No evidence of appendicitis. Intraperitoneal space: Unremarkable. No free air. No significant fluid collection. Vasculature: Unremarkable. No abdominal aortic aneurysm. Lymph nodes: Unremarkable. No enlarged lymph nodes. Urinary bladder: Unremarkable as visualized. Reproductive: Hysterectomy. Bones/joints: Unremarkable. No acute fracture. Soft tissues: Unremarkable. IMPRESSION: 1. Fluid distended small bowel loops noted that may be a transient phenomenon but might also be associated with gastroenteritis. 2. Additional nonemergent findings as above.
--- NOTE | 2024-10-06 17:15 | ECG_ITS ---
APPROVED REPORT Exam: Resting ECG HR:76 bpm ECG Measurements Heart Rate 76 AXES NM 152 P 54 QRSd 91 QRS 87 QT 373 T 62 QTc 404 Conclusion SINUS RHYTHM NONSPECIFIC T-WAVE ABNORMALITY BORDERLINE ECG Electronically signed by : OLIMPIA GILES, 10/10/2024 07:44:26
--- NOTE | 2024-10-06 17:29 | ED_ITS ---
Discharge Plan Disposition Patient Disposition: Home, Self-Care Condition: Fair Prescriptions Prescriptions: New ondansetron HCl 4 mg tablet 4 mg PO Q8H PRN (Reason: nausea and vomiting) 4 Days Qty: 20 0RF ketorolac 10 mg tablet 10 mg PO Q8H PRN (Reason: pain) 15 Days Qty: 30 0RF No Action ibuprofen 600 mg tablet 600 mg PO QID PRN gabapentin 100 mg capsule 300 mg PO TID Humira 40 mg/0.8 mL syringe kit 40 mg SQ WEEKLY ascorbate calcium (vitamin C) 500 mg tablet 500 mg PO DAILY triamterene-hydrochlorothiazid [Maxzide] 75-50 mg tablet 1 tab PO DAILY Qty: 30 5RF Rx Instructions: take one daily for blood pressure furosemide 20 mg tablet 20 mg PO DAILY PRN (Reason: edema) Qty: 90 3RF estradiol 2 mg tablet 2 mg PO DAILY (DME) blood pressure monitor Kit See Dose Instructions .ROUTE .MEDSUPPLY Qty: 1 0RF Dose Instruction: As directed Rx Instructions: As directed cetirizine 10 mg tablet 10 mg PO DAILY atorvastatin 10 mg tablet See Rx Instructions .ROUTE .COMPLEX Qty: 90 1RF Dose Instruction: TAKE 1 TABLET BY MOUTH DAILY Rx Instructions: TAKE 1 TABLET BY MOUTH DAILY carvedilol 25 mg tablet See Rx Instructions .ROUTE .COMPLEX Qty: 180 1RF Dose Instruction: TAKE 1 TABLET BY MOUTH TWICE DAILY MUST ADMINISTER WITH A MEAL/FOOD Rx Instructions: TAKE 1 TABLET BY MOUTH TWICE DAILY MUST ADMINISTER WITH A MEAL/FOOD nirmatrelvir-ritonavir 1 EACH tablet 1 each PO BID 5 Days Qty: 10 0RF promethazine 25 MG tablet 25 mg PO Q6H PRN (Reason: Nausea And Vomiting) Qty: 12 0RF Referrals Follow up/Referrals: Logan Zapata MD [Staff Physician] - See instructions Myah Esquivel APRN [Primary Care Provider] - See instructions Activity Restrictions/Add. Instructions Additional Instructions/Restrictions: Increase fluids and rest. See Dr. Zapata in follow-up for the stones. Please return to the ED if any worsening problems or complaints Clinical Impressions Clinical Impression: History of colon cancer, Gastroenteritis, Calculus of kidney Instructions Patient Instructions: DI for Acute Abdominal Pain Print Language Print Language: Hebrew Discharge ED Provider: J Carlos Krause General Adult HPI <Katina White (ED), [employer] - Last Filed: 10/06/24 20:19> General Chief complaint: Abdominal Pain Stated complaint: abd and back pain 3 kidney stones Time Seen by Provider: 10/06/24 16:45 History of Present Illness HPI narrative: This is a 48-year-old female who presents to the ED today for complaint of epigastric abdominal pain, bloating, nausea. She has seen her primary care doctor and they are doing lab work and did a an x-ray. She does have history of kidney stones, diverticulitis, colon cancer, heart surgery, is on Skyrizi. She denies chest pain or shortness of breath. No fevers or chills. No other symptoms at this time. Related Data Home Medications ?Medication ?Instructions ?Recorded ?Confirmed ibuprofen 600 mg tablet 600 mg PO QID PRN 07/10/18 08/30/21 estradiol 2 mg tablet 2 mg PO DAILY 07/24/19 08/30/21 gabapentin 100 mg capsule 300 mg PO TID 07/24/19 08/30/21 cetirizine 10 mg tablet 10 mg PO DAILY 01/27/21 08/30/21 adalimumab 40 mg/0.8 mL 40 mg SQ WEEKLY 08/30/21 08/30/21 subcutaneous syringe kit (Humira) ascorbate calcium (vitamin C) 500 500 mg PO DAILY 08/30/21 08/30/21 mg tablet Previous Rx's ?Medication ?Instructions ?Recorded blood pressure monitor #1 ea 07/31/19 furosemide 20 mg tablet 20 mg PO DAILY PRN edema #90 tabs 08/30/21 triamterene 75 1 tab PO DAILY #30 tabs 08/30/21 mg-hydrochlorothiazide 50 mg tablet (Maxzide) nirmatrelvir 300 mg (150 mg 1 each PO BID 5 days #10 tabs 06/14/22 x2)-ritonavir 100 mg tablet,dose pack promethazine 25 mg tablet 25 mg PO Q6H PRN Nausea And 06/14/22 Vomiting #12 tabs atorvastatin 10 mg tablet See Rx Instructions .Route 10/26/22 .COMPLEX #90 tabs carvedilol 25 mg tablet See Rx Instructions .Route 10/26/22 .COMPLEX #180 tabs ketorolac 10 mg tablet 10 mg PO Q8H PRN pain 15 days #30 10/06/24 tabs ondansetron HCl 4 mg tablet 4 mg PO Q8H PRN nausea and 10/06/24 vomiting 4 days #20 tabs Allergies Allergy/AdvReac Type Severity Reaction Status Date / Time Penicillins (PENICILLINS) Allergy Unknown Verified 08/30/21 09:33 PFSH <Katina White (ED), [employer] - Last Filed: 10/06/24 20:19> PFSH Disclaimer: The information contained in this section may have been updated after the patient was seen, as this information can be updated by other users. Medical History (Updated 10/06/24 @ 20:23 by Katina White (ED), [employer]) History of colon cancer Surgical History (Updated 07/24/19 @ 09:23 by Juliana Leon RN) History of atrial septal defect repair Social History Smoking Status: Current some day smoker tobacco type: cigarettes packs per day: 1 alcohol intake: never substance use type: denies use current occupational status: unemployed Travel in the last 8 weeks: Inside the [place] household members: spouse Other Medical History Have you received the Flu Vaccine for this season: No Have you received the Pneumonia Vaccine: No <Katina White (ED), [employer] - Last Filed: 10/06/24 20:19> ROS Obtained: Yes Systems reviewed as appropriate & no additional complaints except as documented Constitutional Constitutional: Reports as per HPI Physical Exam <Katina White (ED), [employer] - Last Filed: 10/06/24 20:19> General General appearance: alert and in distress Comment: Abdominal pain Head Head exam: atraumatic and normocephalic Eye Eye exam: Present normal appearance, PERRL and EOMI ENT ENT exam: Present normal exam and normal oropharynx Neck Neck exam: Present normal inspection, full ROM and trachea midline Respiratory Respiratory exam: Present normal lung sounds bilaterally Cardiovascular Cardiovascular exam: Present regular rate, normal rhythm, normal heart sounds, +S1 and +S2 Abdominal Exam Abdominal exam: Present soft Abdominal tenderness: Present LLQ and epigastrium Extremities Exam Extremities exam: Present full ROM and normal capillary refill Back Exam Back exam: Present normal inspection Neurological Exam Neurological exam: Present alert and oriented X3 Skin Skin exam: Present warm and dry Medical Decision Making <Katina White (ED), [employer] - Last Filed: 10/06/24 20:19> Medical Records Screening: Per USPSTF and CDC recommendations, given the prevalence of disease in our region, it is our hospital?s policy to screen for HIV and viral Hepatitis for all patients aged 18 and over and those with ongoing risk factors. Darrel Inquiry Pt receiving controlled substance: No Darrel was queried for this patient: No Vital Signs: 10/06/24 15:55 10/06/24 20:40 Temperature 98.2 F 98.2 F Temperature Source Oral Oral Pulse Rate 67 Pulse Rate [Right Radial] 74 Respiratory Rate 20 18 Blood Pressure 108/66 L Blood Pressure [Right Arm] 130/80 Blood Pressure Mean [Right Arm] 96 Blood Pressure Source Automatic Cuff Blood Pressure Position Sitting 02 Sat by Pulse Oximetry 97 Oxygen Delivery Method Room Air Room Air Lab Data Lab Results 10/06/24 17:11: Urine Color Yellow, Urine Appearance Clear, Urine pH 6.5, Ur Specific Norton <= 1.005, Urine Protein Negative, Urine Glucose (UA) Negative, Urine Ketones Negative, Urine Blood Negative, Urine Nitrate Negative, Urine Bilirubin Negative, Urine Urobilinogen 0.2, Ur Leukocyte Esterase Negative, Urine RBC None, Urine WBC None, Ur Squamous Epith Cells Occasional, Urine Bacteria None 10/06/24 17:40: WBC 8.6, RBC 5.17, Hgb 16.6 H, Hct 48.0 H, MCV 92.9, MCH 32.1 H, MCHC 34.6, RDW 14.7, Plt Count 238, MPV 7.6, Neut % (Auto) 52.7, Lymph % (Auto) 38.1, [place] % (Auto) 5.7, Eos % (Auto) 1.8, Baso % (Auto) 1.7, Neut # (Auto) 4.5, Lymph # (Auto) 3.3, [place] # (Auto) 0.5, Eos # (Auto) 0.2, Baso # (Auto) 0.2, Sodium 139, Potassium 3.4 L, Chloride 106, Carbon Dioxide 25, Anion Gap 11.4, BUN 9, Creatinine 0.80, Estimated Creat Clear 120, Estimated GFR 77, Est GFR ( Amer) 93, Glucose 108 H, Calcium 11.2 H, Total Bilirubin 0.6, AST 44 H, ALT 50, Alkaline Phosphatase 59, Total Protein 7.3, Albumin 4.2, Globulin 3.1, Albumin/Globulin Ratio 1.4 10/06/24 17:40 10/06/24 17:40 Orders (Tests/Meds): ED MEDICATIONS Discontinued Medications Generic Name Dose Route Start Last Admin Trade Name Freq PRN Reason Stop Dose Admin Iopamidol 75 ml 10/06/24 18:21 10/06/24 18:23 Iopamidol-370 (76%);100ml Bottle IV 10/06/24 18:22 75 ml ONCE ONE Administration Iopamidol 75 ml 10/06/24 18:23 10/06/24 18:26 Iopamidol-370 (76%);100ml Bottle IV 10/06/24 18:24 Not Given ONCE ONE Ketorolac Tromethamine 30 mg 10/06/24 20:05 10/06/24 20:18 Ketorolac 30mg/Ml Vial IV 10/06/24 20:06 30 mg ONCE ONE Administration Morphine Sulfate 4 mg 10/06/24 16:59 10/06/24 17:51 Morphine 4mg/Ml Syringe IV 10/06/24 17:00 4 mg ONCE ONE Administration Ondansetron HCl 4 mg 10/06/24 16:59 10/06/24 17:51 Ondansetron 4mg/2ml Vial IV 10/06/24 17:00 4 mg ONCE ONE Administration Pantoprazole Sodium 40 mg 10/06/24 16:59 10/06/24 17:51 Pantoprazole 40mg Vial IV 10/06/24 17:00 40 mg ONCE ONE Administration Sodium Chloride 10 ml 10/06/24 16:59 Sodium Chloride 0.9% 10ml Vial IV 11/05/24 16:58 NEEDED PRN dilute protonix Sodium Chloride 10 ml 10/06/24 18:21 Sodium Chloride 0.9% 10ml Syr (Rad Only) IV 11/05/24 18:20 NEEDED PRN Maintain IV Site Sodium Chloride 10 ml 10/06/24 18:23 10/06/24 18:24 Sodium Chloride 0.9% 10ml Syr (Rad Only) IV 10/06/24 18:24 10 ml ONCE ONE Administration ORDERS Category Date Time Status CT abdomen pelvis w con Stat Cat Scan 10/06/24 16:59 Completed CBC w/Auto Diff [Complete Blood Count Auto Diff] Stat Lab 10/06/24 17:40 Completed Comprehensive Metabolic Panel Stat Lab 10/06/24 17:40 Completed Urinalysis and Microscopic Stat Lab 10/06/24 17:11 Completed Medical Decision Narrative: Insert review patient is a 48-year-old female presenting to the emergency department for evaluation of abdominal pain. Patient is hemodynamically stable and nontoxic-appearing upon arrival, afebrile. Differential diagnosis includes enteritis, ulcer, kidney stone among others. Workup will be conducted with hematologic labs, specific imaging including CT scan, provocative tests. Initial inventions include crystalloid bolus, analgesics, morphine, Zofran and Protonix. Initial workup reviewed by me with a normal urine and labs that were unremarkable. Imaging informally interpreted by me and remarkable for gastroenteritis. Formal imaging read remarkable for kidney stones that were 11 mm and 5 mm but are not obstructing or moving and gastroenteritis. Upon repeat evaluation patient's pain is improved somewhat. Patient encouraged to see urologist but she does not have 1. Patient will be given Zofran and Toradol for pain. <J Carlos Krause MD - Last Filed: 10/06/24 21:34> Vital Signs: 10/06/24 15:55 10/06/24 20:40 Temperature 98.2 F 98.2 F Temperature Source Oral Oral Pulse Rate 67 Pulse Rate [Right Radial] 74 Respiratory Rate 20 18 Blood Pressure 108/66 L Blood Pressure [Right Arm] 130/80 Blood Pressure Mean [Right Arm] 96 Blood Pressure Source Automatic Cuff Blood Pressure Position Sitting 02 Sat by Pulse Oximetry 97 Oxygen Delivery Method Room Air Room Air Lab Data Lab Results 10/06/24 17:11: Urine Color Yellow, Urine Appearance Clear, Urine pH 6.5, Ur Specific Norton <= 1.005, Urine Protein Negative, Urine Glucose (UA) Negative, Urine Ketones Negative, Urine Blood Negative, Urine Nitrate Negative, Urine Bilirubin Negative, Urine Urobilinogen 0.2, Ur Leukocyte Esterase Negative, Urine RBC None, Urine WBC None, Ur Squamous Epith Cells Occasional, Urine Bacteria None 10/06/24 17:40: WBC 8.6, RBC 5.17, Hgb 16.6 H, Hct 48.0 H, MCV 92.9, MCH 32.1 H, MCHC 34.6, RDW 14.7, Plt Count 238, MPV 7.6, Neut % (Auto) 52.7, Lymph % (Auto) 38.1, [place] % (Auto) 5.7, Eos % (Auto) 1.8, Baso % (Auto) 1.7, Neut # (Auto) 4.5, Lymph # (Auto) 3.3, [place] # (Auto) 0.5, Eos # (Auto) 0.2, Baso # (Auto) 0.2, Sodium 139, Potassium 3.4 L, Chloride 106, Carbon Dioxide 25, Anion Gap 11.4, BUN 9, Creatinine 0.80, Estimated Creat Clear 120, Estimated GFR 77, Est GFR ( Amer) 93, Glucose 108 H, Calcium 11.2 H, Total Bilirubin 0.6, AST 44 H, ALT 50, Alkaline Phosphatase 59, Total Protein 7.3, Albumin 4.2, Globulin 3.1, Albumin/Globulin Ratio 1.4 Orders (Tests/Meds): ED MEDICATIONS Discontinued Medications Generic Name Dose Route Start Last Admin Trade Name Freq PRN Reason Stop Dose Admin Iopamidol 75 ml 10/06/24 18:21 10/06/24 18:23 Iopamidol-370 (76%);100ml Bottle IV 10/06/24 18:22 75 ml ONCE ONE Administration Iopamidol 75 ml 10/06/24 18:23 10/06/24 18:26 Iopamidol-370 (76%);100ml Bottle IV 10/06/24 18:24 Not Given ONCE ONE Ketorolac Tromethamine 30 mg 10/06/24 20:05 10/06/24 20:18 Ketorolac 30mg/Ml Vial IV 10/06/24 20:06 30 mg ONCE ONE Administration Morphine Sulfate 4 mg 10/06/24 16:59 10/06/24 17:51 Morphine 4mg/Ml Syringe IV 10/06/24 17:00 4 mg ONCE ONE Administration Ondansetron HCl 4 mg 10/06/24 16:59 10/06/24 17:51 Ondansetron 4mg/2ml Vial IV 10/06/24 17:00 4 mg ONCE ONE Administration Pantoprazole Sodium 40 mg 10/06/24 16:59 10/06/24 17:51 Pantoprazole 40mg Vial IV 10/06/24 17:00 40 mg ONCE ONE Administration Sodium Chloride 10 ml 10/06/24 16:59 Sodium Chloride 0.9% 10ml Vial IV 11/05/24 16:58 NEEDED PRN dilute protonix Sodium Chloride 10 ml 10/06/24 18:21 Sodium Chloride 0.9% 10ml Syr (Rad Only) IV 11/05/24 18:20 NEEDED PRN Maintain IV Site Sodium Chloride 10 ml 10/06/24 18:23 10/06/24 18:24 Sodium Chloride 0.9% 10ml Syr (Rad Only) IV 10/06/24 18:24 10 ml ONCE ONE Administration ORDERS Category Date Time Status CT abdomen pelvis w con Stat Cat Scan 10/06/24 16:59 Completed CBC w/Auto Diff [Complete Blood Count Auto Diff] Stat Lab 10/06/24 17:40 Completed Comprehensive Metabolic Panel Stat Lab 10/06/24 17:40 Completed Urinalysis and Microscopic Stat Lab 10/06/24 17:11 Completed ECG Data Tracing #1: I reviewed this ECG and interpreted as documented below: (Independent interpretation reveals sinus rhythm 76 bpm. NE 152, QRS 91, QTc 404. No acute ischemic change. Normal axis.) Medical Decision Narrative: Insert review patient is a 48-year-old female presenting to the emergency department for evaluation of abdominal pain. Patient is hemodynamically stable and nontoxic-appearing upon arrival, afebrile. Differential diagnosis includes enteritis, ulcer, kidney stone among others. Workup will be conducted with hematologic labs, specific imaging including CT scan, provocative tests. Initial inventions include crystalloid bolus, analgesics, morphine, Zofran and Protonix. Initial workup reviewed by me with a normal urine and labs that were unremarkable. Imaging informally interpreted by me and remarkable for gastroenteritis. Formal imaging read remarkable for kidney stones that were 11 mm and 5 mm but are not obstructing or moving and gastroenteritis. Upon repeat evaluation patient's pain is improved somewhat. Patient encouraged to see urologist but she does not have 1. Patient will be given Zofran and Toradol for pain. I was consulted by the TOBIN, and we discussed the complexity of the problems being addressed. I approved the treatment and management plan for this patient's care in the Emergency Department, thus performing a substantive portion of the medical decision making. J Carlos Krause MD Critical Care <Katina White (ED), [employer] - Last Filed: 10/06/24 20:19> Critical Care Time Critical Care Time: No
[2024-10-06 17:32] LABS: Microscopic, Urine URINE MICROSCOPIC (MICROSCOPIC)
[2024-10-06 17:39] LABS: Appearance,Urine CLEAR (Clear); Bilirubin,Urine Negative (Negative); Blood, Urine Negative (Negative); Color,Urine YELLOW (Yellow); Glucose,Urine (UA) Negative (Negative); Ketones,Urine Negative (Negative); Leukocyte Esterase,Urine Negative (Negative); Nitrate,Urine Negative (Negative); PH,Urine 6.5 (5.0-8.5); Protein,Urine Negative (Negative); Specific Gravity, Urine <= 1.005 (1.005-1.030); Urobilinogen,Urine 0.2 EU/dl (0.2)
[2024-10-06] MEDS: MORPHINE 4MG/ML SYRINGE 4 MG IV (17:51)
[2024-10-06] MEDS: ONDANSETRON 4MG/2ML VIAL 4 MG IV (17:51)
[2024-10-06] MEDS: PANTOPRAZOLE 40MG VIAL 40 MG IV (17:51)
[2024-10-06 17:58] LABS: Albumin Level 4.2 g/dl (3.5-5.0); Chloride 106 mmol/L (98-107); Potassium 3.4 mmoL/L (3.5-5.1); Sodium 139 mmol/L (136-145)
[2024-10-06 17:59] LABS: Squamous Epithelial Cell,Urine Occasional #/hpf (0-5)
[2024-10-06 17:59] LABS: Basophils # 0.2 K/mm3 (0-0.2); Basophils % 1.7 % (0.1-2.0); Eosinophils # 0.2 K/mm3 (0.0-0.4); Eosinophils % 1.8 % (0.1-12.0); Hemoglobin 16.6 g/dL (12.2-16.2); Lymphocytes # 3.3 K/mm3 (0.7-4.5); Lymphocytes % 38.1 % (10-50); Mean Corpuscular HGB Conc 34.6 g/dL (31.8-35.4); Mean Corpuscular Hemoglobin 32.1 pg (27.0-31.2); Mean Corpuscular Volume 92.9 fl (81-99); Mean Platelet Volume 7.6 fl (7.4-10.4); Monocytes # 0.5 K/mm3 (0.1-1.0); Monocytes % 5.7 % (1.7-9.3); Neutrophils # 4.5 K/mm3 (1.8-7.8); Neutrophils % 52.7 % (37.0-80.0); Platelet Count 238 K/mm3 (142-424); Red Blood Count 5.17 M/mm3 (4.20-5.40); Red Cell Distribution Width 14.7 % (11.5-17.5); White Blood Count 8.6 K/mm3 (4.8-10.8)
[2024-10-06 18:00] LABS: Blood Urea Nitrogen 9 mg/dl (7-17); Creatinine Clearance Estimated 120 mL/min (50-200); Estimated Glomerular Filt Rate 77 ml/min (>60); GFR (African American) 93 ML/MIN (>60)
[2024-10-06 18:01] LABS: Alanine Aminotransferase 50 U/L (12-78); Albumin/Globulin Ratio 1.4 (1.1-1.8); Alkaline Phosphatase 59 U/L (38-126); Anion Gap 11.4 mEq/L (5-15); Aspartate Amino Transferase 44 U/L (14-36); Bilirubin,Total 0.6 mg/dl (0.2-1.3); Calcium 11.2 mg/dl (8.4-10.2); Carbon Dioxide 25 mmol/L (22.0-30.0); Globulin 3.1 g/dL (1.3-3.2); Glucose 108 mg/dl (74-100); Total Protein,Serum 7.3 g/dl (6.3-8.2)
[2024-10-06] MEDS: IOPAMIDOL-370 (76%);100ML BOTTLE 75 ML IV (18:23)
[2024-10-06] MEDS: SODIUM CHLORIDE 0.9% 10ML SYR (RAD ONLY) 10 ML IV (18:24)
[2024-10-06] MEDS: KETOROLAC 30MG/ML VIAL 30 MG IV (20:18)
[2024-10-06 20:40] VITALS: BP 108/66; PULSE 67; RESP 18; TEMP 36.8; O2SAT 92
== END 2024-10-06 20:40 | disposition home or self-care (01) ==
PROVIDERS: Nurse Practitioner; Emergency Provider Emergency Medicine; PCP Nurse Practitioner
DX: N20.0 Calculus of kidney (principal); K59.9 Functional intestinal disorder, unspecified; R10.13 Epigastric pain; R11.0 Nausea; M54.9 Dorsalgia, unspecified; Z85.038 Personal history of other malignant neoplasm of large intestine
CPT/HCPCS: 74177; 80053; 81001; 85025; 93005; 96374; 96375; 99285; J1885; J2270; J2405; Q9967

== ENCOUNTER 2025-01-22 12:56 | Outpatient (CLI) | payer OTHER, SELFPAY ==
--- NOTE | 2025-01-22 13:01 | CA_ITS ---
APPROVED REPORT EXAM: Comprehensive 2D, Doppler, and color-flow Echocardiogram Corn Detasseler: Krista East, RT(R) Ht: 5 ft 9 in Wt: 189lbs BSA: 2.02 BP: 144/87 mmHg Indications: pre op for colonoscopy, congenital ASD closed at 14 years of age, hx colon cancer and resection, smoker. 2D Dimensions LVEF (Burgess's) 71.60 % F: 54 - 74 LV Volume 80.20 mL F: 46 - 106 LV Volume Index 39.7 mL/m2 F: 29 - 61 LA Volume 32.70 mL LA Volume Index 16.19 mL/m2 (M/F) 16-34 EF AP4 72.30 % EF AP2 72.1 % EF BP 71.6 % GL Strain -20.6 % M-Mode Dimensions RVDd 2.62 cm (0.9-2.6) LA Diam 3.47 cm (1.9-4.0) LVDd 4.31 cm (3.5-5.7) LVDs 3.06 cm (3.5-5.7) IVSd 0.85 cm (0.6-1.1) PWd 0.93 cm (0.6-1.1) EF (Teich) 56.00% FS 29.00% EDV (Teich) 83.50 mL ESV (Teich) 36.70 mL LV Diastology E Decel Time 203 (160-240 msec) E/A Ratio 1.0 Mitral Valve MV E Max Harvey. 82.0 (40-130 cm/s) MV A Velocity 85.0 (40-130 cm/s) E/A Ratio 0.96 MV PHT 60.0 ms Left Ventricle The left ventricle is normal size. The left ventricular systolic function is normal. The left ventricular ejection fraction is within the normal range. There is normal left ventricular wall thickness. There is normal LV segmental wall motion. The left ventricular diastolic function is normal. LVEF is 55%. Right Ventricle The right ventricle is normal size. The right ventricular systolic function is normal. Atria The left atrium size is normal. The right atrium size is normal. History of ASD s/p repair during childhood. There is no color Doppler evidence of residual interatrial shunt. Aortic Valve Aortic valve opens well. There is no aortic valvular stenosis. No aortic regurgitation is present. Mitral Valve The mitral valve is normal in structure. No evidence of mitral valve stenosis. Trace mitral regurgitation. Tricuspid Valve Tricuspid valve is grossly normal in structure and function. Trace tricuspid regurgitation. There is insufficient TR jet to estimate RVSP. Pulmonic Valve The pulmonary valve is normal in structure. Trace pulmonic regurgitation. Great Vessels The aortic root is normal in size. IVC is normal in size and collapses >50% with inspiration. Pericardium There is no pericardial effusion. Other Information Study Quality: Fair Conclusion Normal biventricular systolic function. No significant valvular stenosis or regurgitation. History of ASD s/p repair during childhood. There is no color Doppler evidence of residual interatrial shunt. Electronically signed by : Kinsey Little MD 01/29/2025 14:03:39
== END 2025-01-22 23:59 | disposition home or self-care (01) ==
LOC: RT 12:58
PROVIDERS: PCP Nurse Practitioner; Visit Provider Nurse Practitioner
DX: Z01.818 Encounter for other preprocedural examination (principal); R00.2 Palpitations; R94.31 Abnormal electrocardiogram [ECG] [EKG]; R06.09 Other forms of dyspnea; Z87.74 Personal history of (corrected) congenital malformations of heart and circulatory system
CPT/HCPCS: 93306